=== PATIENT | female | born 1975 | race Caucasian/White ===

== ENCOUNTER 2019-01-19 14:47 | Emergency (ER) | payer OTHER, BC ==
--- OUTSIDE RECORDS SUMMARY | 2019-01-19 14:53 | XMS REPORT | Summary of Care ---
:1975 Author Organization [facility] Address [address] [facility] [place] [address] Care Team Providers Name Role Phone None, [place] Primary Care Provider Unavailable Reason for Visit Reason Comments Cat Bite on right middle finger Cat Scratch left hand Encounter Details Date Type Department Care Team Description 01/19/2019 Office Visit [facility] Karin Silveira, Cat bite of finger, initial encounter (Primary Dx); Practice [employer] , unspecified gestational age [address] [place] [address] [place] [address] [phone] Allergies No Known Allergiesdocumented as of this encounter (statuses as of 01/19/2019) Medications Medication Sig Dispensed Refills Start Date End Date Status Vit-Fe Take 1 Tab by 0 Active Fumarate-FA ( mouth DAILY. VITAMIN PO) Folic Acid 0.8 MG Oral Take 1 Cap by 0 Active Cap mouth DAILY. cephalexin (KEFLEX) 500 Take 1 Cap by 28 Cap 0 01/19/2019 Active MG Oral Cap mouth FOUR TIMES DAILY. documented as of this encounter (statuses as of 01/19/2019) Active Problems Problem Noted Date Rubella non-immune status, antepartum 09/17/2017 Estimated Date of Delivery Comments Yes 06/01/2019 documented as of this encounter (statuses as of 01/19/2019) Immunizations Name Administration Dates Next Due TDAP Vaccine 01/19/2019 documented as of this encounter Social History Tobacco Use Types Packs/Day Years Used Date Never Smoker Smokeless Tobacco: Never Used Alcohol Use Drinks/Week oz/Week Comments Yes 3 Standard drinks or equivalent 3.0 occasional; none since knowledge of Estimated Date of Delivery Comments Yes 06/01/2019 Sex Assigned at Date Recorded Not on file Job Start Date Occupation Industry Not on file Not on file Not on file Travel History Travel Start Travel End No recent travel history available. documented as of this encounter Last Filed Vital Signs Vital Sign Reading Time Taken Comments Blood Pressure 102/54 01/19/2019 2:12 PM EST Pulse 71 01/19/2019 2:12 PM EST Temperature 36.8 01/19/2019 2:12 PM EST C (98.2 F) Respiratory Rate - - Oxygen Saturation 99% 01/19/2019 2:12 PM EST Inhaled Oxygen Concentration - - Weight 53.5 kg (118 lb) 01/19/2019 2:12 PM EST Height - - Body Mass Index 23.05 06/25/2018 11:18 AM EDT documented in this encounter Patient Instructions Patient InstructionsKarin Asif FNP - 01/19/2019 2:00 PM ESTAdacel today Start antibiotic [facility] per Zenaida at [facility] documented in this encounter Progress Notes Karin Asif FNP - 01/19/2019 2:00 PM EST PATIENT: Mi Aguilar : 1975 DATE OF SERVICE: 01/19/2019 CHIEF COMPLAINT: Chief Complaint Patient presents with Cat Bite on right middle finger Cat Scratch left hand Subjective HISTORY OF PRESENT ILLNESS: Mi Aguilar is a 43-y.o. female. HPI Pt bitten on right 3rd finger and scratched on left hand by stray cat that was in wheel well of her car at [facility] parking lot earlier today.Pt is 6 months . Past Medical History: Diagnosis Date Abnormal Pap smear of cervix at age 22; wnl since Depression Infertility, female 06/2017 @[facility] Family History Problem Relation Age of Onset Dementia Mother Other Diagnosed Disorder Father lymphoma Hypertension Maternal Grandmother Other Diagnosed Disorder Maternal Grandmother recurrent miscarriages, stillbirth Diabetes Paternal Grandmother Type II Current Outpatient Medications Medication Sig cephalexin (KEFLEX) 500 MG Oral Cap Take 1 Cap by mouth FOUR TIMES DAILY. Folic Acid 0.8 MG Oral Cap Take 1 Cap by mouth DAILY. Vit-Fe Fumarate-FA ( VITAMIN PO) Take 1 Tab by mouth DAILY. No current facility-administered medications for this visit. No Known Allergies Social History Socioeconomic History Marital status: Spouse name: Not on file Number of children: Not on file Years of education: Not on file Highest education level: Not on file Occupational History Not on file Social Needs Financial resource strain: Not on file Food insecurity: Worry: Not on file Inability: Not on file Transportation needs: Medical: Not on file Non-medical: Not on file Tobacco Use Smoking status: Never Smoker Smokeless tobacco: Never Used Substance and Sexual Activity Alcohol use: Yes Alcohol/week: 3.0 standard drinks Types: 3 Standard drinks or equivalent per week Comment: occasional; none since knowledge of Drug use: No Sexual activity: Yes Partners: Male Lifestyle Physical activity: Days per week: Not on file Minutes per session: Not on file Stress: Not on file Relationships Social connections: Talks on phone: Not on file Gets together: Not on file Attends restorationist service: Not on file Active member of club or organization: Not on file Attends meetings of clubs or organizations: Not on file Relationship status: Not on file Intimate partner violence: Fear of current or ex partner: Not on file Emotionally abused: Not on file Physically abused: Not on file Forced sexual activity: Not on file Other Topics Concern Not on file Social History Narrative Not on file Over the last 2 weeks, have you been feeling down, depressed, anxious, or hopeless?: 0 Over the past 2 weeks, have you felt little interest or pleasure in doing things ?: 0 REVIEW OF SYSTEMS: Review of Systems Musculoskeletal: Positive for myalgias. Objective PHYSICAL EXAM: VITALS: BP 102/54 | Pulse 71 | Temp 98.2 F (36.8 C) (Tympanic) | Wt 118 lb (53.5 kg) | LMP 03/02/2018 (Exact Date) | SpO2 99% | BMI 23.05 kg/m Body mass index is 23.05 kg/m. Physical Exam Vitals signs reviewed. Constitutional: Appearance: Normal appearance. Comments: Musculoskeletal: Hands: Skin: General: Skin is warm and dry. Capillary Refill: Capillary refill takes less than 2 seconds. Neurological: Mental Status: She is alert and oriented to person, place, and time. ASSESSMENT / IMPRESSION: ICD-9-CM ICD-10-CM 1. Cat bite of finger, initial encounter 883.0 S61.259A E906.3 W55.01XA 2. , unspecified gestational age V22.2 Z34.90 Plan Discussed with Zenaida at [facility] Environmental Health - cat needs to be observed for 10 days - since stray in parking lot likelihood of capture is slim - advised to send pt to [facility] for treatment to prevent rabies - pt agrees. Tdap and Keflex ordered today Author: ESTELLA Decker 01/19/2019 14:49 documented in this encounter Plan of Treatment Health Maintenance Due Date Last Done Comments LIPID DISORDER SCREENING 08/19/1993 PAP SMEAR 08/19/1996 MAMMOGRAM (SCREENING) 2015 INFLUENZA VACCINE (#1) 2018 DEPRESSION SCREENING 01/20/2020 01/19/2019 HIV SCREENING Completed 09/03/2017, 10/14/2016 HPV IMMUNIZATION SERIES Aged Out No longer eligible based on patient's age to complete this topic MENINGOCOCCAL VACCINE IMM Aged Out No longer eligible based on patient's age to complete this topic PNEUMOCOCCAL 0-64 YRS Aged Out No longer eligible based on patient's age to complete this topic documented as of this encounter Results Not on filedocumented in this encounter Visit Diagnoses Diagnosis Cat bite of finger, initial encounter - Primary , unspecified gestational age documented in this encounter documented as of this encounter"
== END 2019-01-19 15:20 | disposition left against medical advice (07) ==
LOC: UCEAST 14:47
DX: Z53.21 Procedure and treatment not carried out due to patient leaving prior to being seen by health care provider (principal)

== ENCOUNTER 2019-01-22 07:22 | Emergency (ER) | payer BC, OTHER ==
[2019-01-22 07:34] VITALS: BP 100/54
[2019-01-22] MEDS ORDERED: Rabies VIRUS VACCINE (RabAvert)* 2.5 UNITS VIAL IM ONE (07:50)
--- NOTE | 2019-01-22 08:47 | UC ---
General HPI - HPI Summary HPI Summary: Patient presents to urgent care requesting #2 of her series of rabies vaccine. Patient was bit by a feral cat last week. Patient states she was in contact with both [facility] as well as [facility] this is happening [facility]. Patient was treated in the emergency department [facility] where she received immunoglobulin, tetanus , and rabies #1 vaccine. Patient is here for rabies #2 vaccine. Patient has appointment scheduled for #3 and #4 to the [facility]. Patient without any complaints or pain reaction related to previous injections Pt is 5 months . Pt's medications as entered in the EMR by triage nurse reviewed this visit - History of Current Complaint Chief Complaint: UCBiteInjury Stated Complaint: POST RABIES EXPOSURE Time Seen by Provider: 01/22/19 07:34 Hx Obtained From: Patient Pain Intensity: 0 - Allergy/Home Medications Allergies/Adverse Reactions: Allergies Allergy/AdvReac Type Severity Reaction Status Date / Time No Known Allergies Allergy Verified 01/22/19 07:33 Home Medications: Home Medications NK [No Home Medications Reported] 01/22/19 [History Confirmed 01/22/19] PMH/Surg Hx/FS Hx/Imm Hx Previously Healthy: Yes - Surgical History Surgical History: Yes Surgery Procedure, Year, and Place: wisdom teeth - Family History Known Family History: Positive: Non-Contributory - Social History Occupation: Employed Full-time Lives: With Family Alcohol Use: None Substance Use Type: None Smoking Status (MU): Never Smoked Tobacco Review of Systems All Other Systems Reviewed And Are Negative: Yes Is Patient Immunocompromised?: No Physical Exam - Summary Physical Exam Summary: Vital Signs Reviewed: Yes A+Ox3, no distress Eyes: Conjunctiva Clear ENT: Hearing grossly normal neck: supple Respiratory: Positive: No respiratory distress, No accessory muscle use Cardiovascular: skin color reflect adequate perfusion Musculoskeletal Exam: LINARES x 4 without difficulty Neurological: Positive: Alert, ambulatory without difficulty Psychological: Positive: Normal Response To proivder Skin: Positive: no rash, no ecchymosis - bite wounds c/d/i previous injection site c/d/i Triage Information Reviewed: Yes Vital Signs: Initial Vital Signs Temp 99.1 F 01/22/19 07:30 Pulse 72 01/22/19 07:30 Resp 18 01/22/19 07:30 BP 100/54 01/22/19 07:30 Pulse Ox 100 01/22/19 07:30 Course/Dx - Course Course Of Treatment: Pt presents to for #2 rabies vaccine. Pt without previous reaction to vaccine Pt has additional appointment schedule for remainder or series return precautions discussed pt comfortable and agreement Per Uptodate: Animal reproduction studies have not been conducted. is not a contraindication to postexposure prophylaxis. Pre-exposure prophylaxis during may also be considered if risk of rabies is great. Inactivated vaccines have not been shown to cause increased risks to the fetus (ACIP [ Madeleine 2017]). - Diagnoses Provider Diagnosis: Rabies, need for prophylactic vaccination against Discharge ED - Sign-Out/Discharge Documenting (check all that apply): Patient Departure All imaging exams completed and their final reports reviewed: No Studies - Discharge Plan Condition: Stable Disposition: HOME Patient Education Materials: Rabies Vaccine (ED) Referrals: [facility] [employer], [[email or web address], APPLICATION, OTHER] - Additional Instructions: Keep your appointments as scheduled for the remainder of your vaccination series You may experience discomfort at the site of the injection - this is normal. Okay to take tylenol as needed for discomfort Contact the health department, return here or go to the emergency department with questions or concerns - Billing Disposition and Condition Condition: STABLE Disposition: Home
== END 2019-01-22 08:17 | disposition home or self-care (01) ==
LOC: UCEAST 07:22
DX: Z23 Encounter for immunization (principal); O9A.212 Injury, poisoning and certain other consequences of external causes complicating pregnancy, second trimester; T14.8XXD Other injury of unspecified body region, subsequent encounter; W55.01XD Bitten by cat, subsequent encounter
CPT/HCPCS: 90471; 90675; 99211; G0463

== ENCOUNTER 2019-05-26 01:02 | Inpatient (IN) | payer BC ==
[2019-05-26] MEDS ORDERED: Buffered Lidocaine 1% SYRIN* 1 ML/SYRINGE INTRADERM ONE (02:22)
[2019-05-26] MEDS ORDERED: Lactated Ringers 1000 ML Bag* 1,000 ML IV ONE ×2 (02:22→09:10)
[2019-05-26] MEDS ORDERED: hydrOXYzine HCL TAB* 25 MG PO PRN (02:30)
[2019-05-26 05:10] LABS: Urine Benzodiazepine Screen None Detected (None Detect); Urine Opiates Screen None Detected (None Detect)
[2019-05-26] MEDS ORDERED: Morphine 10 MG/ML VIAL (1 ml) IV ONE (07:04)
[2019-05-26] MEDS ORDERED: Penicillin G Potassium IV* 5,000,000 UNITS in NS 0.9% 100 ML* 100 ML IVPB ONE (07:07)
[2019-05-26] MEDS ORDERED: Promethazine INJ(RESTRICTED)* 25 MG/ML 1 ML VIAL IV PRN (07:07)
--- NOTE | 2019-05-26 07:25 | HP ---
General Information - Reason for Visit Patient reports large gush of clear fluid around 0 last night. Cramping and mild ctx since then. - General Information Maternal Age: 43 Grav: 2 Para: 0 SAB: 1 IEA: 0 Estimated Due Date: 06/01/19 Maternal Blood Type and Rh: A Positive - Results this Serology/RPR Result: Non-Reactive Rubella Result: Immune HBsAg Result: Negative HIV Result: Negative GBS Culture Result: Positive Past Medical History Delivery History: See Records - No previous deliveries Pertinent Past Medical History: See Records - Depression Pertinent Past Surgical History: See Records Past Surgical History Comment: D&C 09/2017 [place] teeth removal Pertinent Family History: Non-Contributory Family History Comment: Lymphoma Kidney dz Lewy body dz - Antepartal Records Antepartal Records: Reviewed, Complicated by: - AMA age 43; GBS positive; HSV Review of Systems Constitutional: Uncomfortable CV Complaint: No Gastrointestinal: Normal Bowel Movement, Nausea, Vomiting Genitourinary: No Dysuria, No Bleeding, No Leaking Fluid Musculoskeletal: Contractions Neurological: No Headache, No Visual Changes Movement: Normal Exam Allergies/Adverse Reactions: Allergies No Known Allergies Allergy (Verified 05/26/19 02:09) BP 123/77 HR 66 T 99.0 O2 100 Lab Values - Entire Visit: Laboratory Tests 05/26/19 03:45 Urine Opiates Screen None detected Ur Barbiturates Screen None detected Ur Phencyclidine Scrn None detected Ur Amphetamines Screen None detected U Benzodiazepines Scrn None detected Urine Cocaine Screen None detected U Cannabinoids Screen None detected - Measurements Height: 5 ft Weight: 129 lb Weight in lbs: 129.575423 Body Mass Index (BMI): 25.2 Pre- Weight: 105 lb Weight Gained This : 24 lbs and 0 ozs - Exam Breast: Breast Exam Deferred CVA: No CVA Tenderness Extremities: No Edema Heart: Normal Rhythm/Heart Sounds HEENT: No Significant Findings Lungs: Clear Bilaterally Rectal: Rectal Exam Deferred Thyroid: - - Abdominal Exam Abdomen Exam: Non-Tender, Fundal Height Consistent with Dates - Ultrasound/Biophysical Profile Ultrasound Status: Not Done Targeted Exam Findings Estimated Weight: 7.5lb Cervical Exam: Fingertip Effacement: 100% Station: 0 Presenting Part: Vertex Membrane Status: SROM Amniotic Fluid Evaluation: Gross Rupture, Clear Bleeding/Discharge: None EFM Findings - External Monitor Findings Baseline Heart Rate: 130 External Monitor Findings: Accelerations Present, No Pattern of Variable or Late Decelerations, Variability Moderate Contractions: Irregular, Moderate, < 45 Seconds Contraction Frequency: Q 2-5 min, irritability Assessment/Plan - Assessment IUP @ 39+1 weeks gestation in early labor. Spontaneous rupture of membranes. No evidence acidemia. - Obstetrical Risk Factors Obstetrical Risk Factors: GBS Positive - Plan Plan: Admit - Anticipate Vaginal Delivery Plan Comment: PARQ discussion use of therapeutic rest medications; patient in agreement. Will also give fluid bolus with IV initiation as patient has been vomiting and oral intake limited. Patient may desire epidural. Will start GBS prophylaxis. - Date/Time of Admission Date of Admission: 05/26/19 Time of Admission: 02:26
[2019-05-26 07:45] LABS: ABS Basophils 0.1 10^3/ul (0-0.2); ABS Lymphocytes 1.4 10^3/ul (1.0-4.8); ABS Monocytes 0.3 10^3/ul (0-0.8); ABS Neutrophils 12.8 10^3/ul (1.5-7.7); Eosinophil % 0.1 %; Hematocrit 40 % (35-47); Hemoglobin 13.9 g/dL (12.0-16.0); Lymphocyte % 9.5 %; Mean Corpuscular HGB Conc 35 g/dL (31-36); Mean Corpuscular Hemoglobin 32 pg (27-31); Mean Corpuscular Volume 92 fL (80-97); Mean Platelet Volume 9.7 fL (7.4-10.4); Platelet Count 232 10^3/uL (150-450); Red Blood Count 4.27 10^6 /uL (3.70-4.87); Red Cell Distribution Width 14 % (10-15); White Blood Count 14.5 10^3/uL (3.5-10.8)
[2019-05-26] MEDS: Lactated Ringers 1000 ML Bag* 1,000 ML IV SCH ×3 (08:19→14:29)
[2019-05-26] MEDS ORDERED: OBEPIDURAL* 250 ML EPIDURAL ONE (08:27)
--- NOTE | 2019-05-26 08:31 | PN ---
Progress Note - Progress Note Date of Service: 05/26/19 Note: Quick note: Mi sidelying in bed, resting between UCs and vocalizing during. She requests an epidural. Discussed options and alternatives including deep abdominal breathing and tub. Mi opts to proceed with epidural, Dr. Navarro paged and on the way. Will reassess once comfortable
[2019-05-26] MEDS ORDERED: Bupivacaine 0.25% SDV PF* 10 ML VIAL INJ ONE (08:34)
[2019-05-26] MEDS ORDERED: EPHEDrine (Pressors)* 50 MG/ML VIAL IV PUSH PRN (09:10)
[2019-05-26] MEDS ORDERED: Phenylephrine 40 MCG/ML SYRINGE IV PUSH PRN (09:10)
[2019-05-26] MEDS ORDERED: Famotidine TAB* 20 MG PO PRN (09:10)
[2019-05-26] MEDS ORDERED: Sodium Citrate/Citric Acid* 15 ML UDC PO PRN (09:10)
[2019-05-26] MEDS ORDERED: Lactated Ringers 1000 ML Bag* 1,000 ML IV SCH (10:00)
[2019-05-26] MEDS: Penicillin G Potassium IV* 3,000,000 UNITS in NS 0.9% 100 ML* 100 ML IVPB SCH ×3 (11:55→19:52)
--- NOTE | 2019-05-26 12:18 | PN ---
Progress Note - Progress Note Date of Service: 05/26/19 Note: S: Feeling comfortable s/p CEI placement. Unable to feel UCs. Less drowsy now that morphine/phenergan from this am has worn off O: B/P 113/73, P: 93, R: 20, T: 99.6 FHR: baseline 135, moderate variability, +accels, occasional early decels UCs: q 6-8 min, moderate to palpation. Regular VE deferred. SROM x 15 hrs A: IUP at 39 1/7 weeks Category I FHR, no evidence of metabolic acidemia GBS positive, tx w/ IV PCN x 2 doses P: Reassess once bloody show, feelings of increased pressure, change in FHR, or if UCs space out Continue position changes to promote descent continue GBS prophylaxis per protocol Anticipate SVB
--- NOTE | 2019-05-26 13:07 | PN ---
Progress Note - Progress Note Date of Service: 05/26/19 Note: B/P: 102/59, P: 69, T: 99.1 FHR: baseline 145, moderate variability, +accelerations, occ early deceleration UCs: q 6-9 min, moderate VE: 1/100/-1, clear fluid A: IUP at 39 1/7 weeks No evidence of metabolic acidemia early labor SROM x 15.5 hr P: Continue GBS prophylaxis per protocol Discussed augmentation with IV pitocin; Mi weeks at this time Temperatures q2 hrs reassess PRN Anticipate SVB
--- NOTE | 2019-05-26 16:34 | PN ---
Progress Note - Progress Note Date of Service: 05/26/19 Note: S: Left leg less numb than right leg but still feeling UCs O: B/P 107/68, P: 62, R: 20, T: 99.9 FHR: baseline 150, moderate variability, +accelerations, no decelerations UCs: 8-10 min, moderate VE: 1/100/0, clear fluid A: IUP at 39 1/7 weeks Category I FHR, no evidence of metabolic acidemia Early labor SROM x 19 hr P: Revisited augmentation with IV pitocin, Mi again declines at this time. Re-assess in 2-4 hrs Continue GBS prophylaxis per protocol and q2hr temps Anticipate SVB
--- NOTE | 2019-05-26 19:36 | PN ---
Progress Note - Progress Note Date of Service: 05/26/19 Note: S: Feeling UCs slightly more, but not painful. Declines need to push her button at this time O: B/P: 122/65, P: 56, R: 20, T: 99.8 FHR: baseline 150, moderate variability, + accelerations, no decelerations UCs: q 5-7 min, moderate VE: 1/100/0, clear fluid. Bloody show noted A: IUP at 39 1/7 weeks Category I FHR, no evidence of metabolic acidemia SROM x 22 hrs VE unchanged x 7 hrs GBS positive, treated x 3 doses P: PARQ discussion re: augmentations with low dose pitocin. Tyree agree at this time Reassess PRN Anticipate SVB
[2019-05-26] MEDS ORDERED: Oxytocin in LR* 20 UNITS/1,000 ML BAG IVPB SCH (20:00)
[2019-05-26] MEDS ORDERED: Acetaminophen TAB* 325 MG PO ONE (20:28)
[2019-05-26] MEDS ORDERED: Acetaminophen TAB* 325 MG ONE (20:29)
[2019-05-26 21:01] LABS: ABS Lymphocytes 1.7 10^3/ul (1.0-4.8); ABS Monocytes 0.9 10^3/ul (0-0.8); ABS Neutrophils 11.7 10^3/ul (1.5-7.7); Eosinophil % 0.1 %; Hematocrit 34 % (35-47); Hemoglobin 11.8 g/dL (12.0-16.0); Lymphocyte % 11.6 %; Mean Corpuscular HGB Conc 34 g/dL (31-36); Mean Corpuscular Hemoglobin 32 pg (27-31); Mean Corpuscular Volume 93 fL (80-97); Mean Platelet Volume 9.4 fL (7.4-10.4); Platelet Count 179 10^3/uL (150-450); Red Blood Count 3.67 10^6 /uL (3.70-4.87); Red Cell Distribution Width 14 % (10-15); White Blood Count 14.3 10^3/uL (3.5-10.8)
--- NOTE | 2019-05-26 21:34 | PN ---
Progress Note - Progress Note Date of Service: 05/26/19 Note: S: Has pushed epidural button, but reports she is not in pain. More aware of UCs and nervous it could become more intense O: B/P: 126/78, P: 67, R: 20, T: 100.6, increased from 100.4 at 2020. 975 mg Tylenol given PO White blood count 14.3, decreased from 14.5 this morning FHR: baseline 150, moderate variability, +accelerations, occasional late decelerations. UCs: q 3-8 min, moderate to palpation VE deferred Pitocin at 6 mu/min A: IUP at 39 1/7 weeks Category II FHR, doubt metabolic acidemia at this time P: Fluid bolus and position changes to promote oxygenation Re-take temperature at 2145; Consider IV ampicillin and gentamycin if still elevated Reassess 1-2 hrs or sooner as indicated Anticipate SVB
[2019-05-27] MEDS: Penicillin G Potassium IV* 3,000,000 UNITS in NS 0.9% 100 ML* 100 ML IVPB SCH (00:02)
--- NOTE | 2019-05-27 00:09 | PN ---
Progress Note - Progress Note Date of Service: 05/26/19 Note: S: Called to pt room because her partner Bronwyn had concerns about FHR. Upon arriving at room, Bronwyn stated "I've been watching the heart rate for 18 hours and its gotten higher." I explained that baby's baseline was 155, which is normal, but that baby has had a couple of prolonged accelerations. He then voiced frustration that I look at Mi instead of him when I am explaining things and it makes him feel disrespected. He stated he would like a straightforward plan regarding "how long we're going to let this go on" since she has now been SROM >24 hr. I informed him the rationale for recommending pitocin had been the lack of cervical change from when I checked [place] cervix at 1300 to when I checked again at 1915. We discussed the FHR and that it overall has been normal today, with moderate variability and increases above baseline without significant decreases, which is a reassuring sign of well -being. I did mention her elevated temperature as a concern, especially in presence of prolonged rupture of membranes, but that her temperature was currently below 100 (99.8), her WBC count unchanged from this morning, and no increase has been noted in maternal or baseline heart rate. I then was called by the answering service and briefly excused myself from the room to answer the call. Upon returning to the room, Bronwyn stated that he has been "asking questions in the simplest of terms" and expressed feeling distress that he has not gotten clear answers on "the expected progression and timeline" of [place] labor. He stated I was just "looking for an excuse to run out of the room" and I should not have left the room to answer the call from the answering service. I apologized for his upset and attempted to explain that labor does not always follow a predictable pattern and he interrupted me to tell me that people entrust him with tens of millions of dollars to invest in the stock market and that isn't predictable either but he at least has a plan for what to do. I reviewed with him that we did make a plan when we started pitocin shortly after 1900 to reassess for cervical change in 3-4 hours, and that we were now within that window. He stated the nurse told him it would be midnight when I checked Mi. I told him the best way to assess labor progress is an adequate contraction pattern in presence of cervical change, but that we do not want to assess too frequently in presence of prolonged rupture of membranes as this can increase the risk of infection. I told him that the plan, at this point, was for a vaginal pending cervical change. I offered Mi a cervical exam and she agreed. O: B/P 113/65, P: 64, T: 98.9 FHR: baseline 150, moderate variability, +accelerations, occ variable decelerations UCs: q3-4 min, moderate VE: 7/100/0, bloody show Pitocin at 10 mu/min A: IUP at 39 1/7 weeks Category II FHR, doubt metabolic acidemia. No pattern of repetitive late or variable decelerations and moderate variability Active labor/transition GBS positive P: Continue pitocin per protocol. Discussed if temperature returns to greater than or equal to 100.4, I will recommend IV antibiotics for chorio as well as swab for COVID-19. We discussed the plan for her labor moving forward, which is to reassess by no later than 2 am. We would consider a cervical exam sooner in presence of distress, increased pressure or urge to push, or patient desire. Will consult with Aman Kemp re: treatment for suspected chorio vs COVID-19 Anticipate SVB
--- NOTE | 2019-05-27 00:18 | PN ---
Progress Note - Progress Note Date of Service: 05/27/19 Note: Quick note: temperature persisting above 100 and baseline increasing, recommend IV ampicillin/gentamicin. Bronwyn and Mi agree to plan. Will update Aman Kemp MD
[2019-05-27] MEDS: Ampicillin ADVAN(*) 2 GM in NS 0.9% 100 ML* 100 ML IVPB SCH ×2 (00:45→07:44)
[2019-05-27] MEDS ORDERED: GENTAMICIN ADULT IVPB SCH (01:00)
[2019-05-27] MEDS ORDERED: NS 0.9% IVPB SCH (01:00)
[2019-05-27] MEDS ORDERED: Dibucaine 1% 28.35 GM TUBE PR PRN (06:53)
[2019-05-27] MEDS ORDERED: Tetan/Diph/Pertus SYR(Tdap)* 0.5 ML SYR(BOOSTRIX) use SYR contains LATEX IM ONE (06:53)
[2019-05-27] MEDS ORDERED: Glycerin ADULT SUPP PR PRN (06:53)
[2019-05-27] MEDS ORDERED: Witch Hazel PAD* JAR TOPICAL PRN (06:53)
--- NOTE | 2019-05-27 06:57 | PROCNOTE ---
[facility] OB: Delivery Note - Delivery A Time of : 06:40 [place] Sex: Female Score 1 Minute: 8 Score 5 Minutes: 9 Gestational Age in Weeks and Days at Delivery: Missing required information. Delivery Method: Spontaneous Vaginal Labor: Induced Did Patient attempt ?: N/A, No Previous Amniotic Fluid: Clear Estimated Blood Loss: 200 Anesthesia/Analgesia: CEI for Labor - Nursery Level of Nursery: Regular/Bedside - Perineum Perineal Injury: None/Intact, 1st Degree Perineal Repair: None - Events Delivery Events of Note: None Apply
[2019-05-27] MEDS ORDERED: Lactated Ringers 1000 ML Bag* 1,000 ML IV SCH (07:00)
[2019-05-27] MEDS: OBEPIDURAL* 250 ML EPIDURAL SCH ×2 (07:43→12:15)
[2019-05-27] MEDS ORDERED: Simethicone TAB* 80 MG TAB.CHEW PO SCH (08:30)
[2019-05-27] MEDS: Ibuprofen TAB* 600 MG PO PRN ×3 (10:28→22:38)
[2019-05-27] MEDS: Docusate CAP* 100 MG PO SCH ×3 (12:22→21:16)
[2019-05-27] MEDS: Acetaminophen TAB* 325 MG PO PRN ×2 (14:53→21:16)
--- NOTE | 2019-05-27 15:04 | PTEDU ---
Patient Name: CAPO JALLOH CAPO JALLOH selected video: Follow Me Mum: [employer] [place] [facility] Successful to view on 05/26 at 3:04:31 PM from [id number]
[2019-05-27] MEDS ORDERED: Lidocaine 1% INJ* 10 MG/ML 30 ML SDV ONE (19:00)
--- NOTE | 2019-05-27 23:53 | PN ---
Progress Note - Progress Note Date of Service: 05/27/19 Note: Called by RN. Pt reports sharp pelvic pain. She reports difficulty walking. Denies LE weakness, hip/back pain, urinary/fecal incontinence. On exam, pain elicited with flexion of knees; with bilateral pressure on trochanters. 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 Plan for PT assessment and pelvic radiograph tomorrow. Pt to try pelvic girdle and ibuprofen/Tylenol for pain. -AM
[2019-05-27] MEDS ORDERED: oxyCODONE TAB* 5 MG TAB PO PRN (23:55)
[2019-05-28] MEDS: Ibuprofen TAB* 600 MG PO PRN ×3 (04:27→17:12)
[2019-05-28 06:47] LABS: ABS Eosinophils 0.3 10^3/ul (0-0.6); ABS Lymphocytes 1.9 10^3/ul (1.0-4.8); ABS Monocytes 0.6 10^3/ul (0-0.8); ABS Neutrophils 10.9 10^3/ul (1.5-7.7); Eosinophil % 1.8 %; Hematocrit 34 % (35-47); Hemoglobin 11.8 g/dL (12.0-16.0); Lymphocyte % 13.6 %; Mean Corpuscular HGB Conc 35 g/dL (31-36); Mean Corpuscular Hemoglobin 33 pg (27-31); Mean Corpuscular Volume 94 fL (80-97); Mean Platelet Volume 9.3 fL (7.4-10.4); Platelet Count 171 10^3/uL (150-450); Red Blood Count 3.61 10^6 /uL (3.70-4.87); Red Cell Distribution Width 14 % (10-15); White Blood Count 13.7 10^3/uL (3.5-10.8)
[2019-05-28] MEDS: Docusate CAP* 100 MG PO SCH ×3 (08:07→21:14)
[2019-05-28] MEDS: Acetaminophen TAB* 325 MG PO PRN ×3 (08:07→21:15)
[2019-05-28] MEDS ORDERED: Ferrous Gluconate TAB* 324 MG TAB PO SCH (09:00)
[2019-05-29] MEDS: Ibuprofen TAB* 600 MG PO PRN ×3 (00:29→12:37)
[2019-05-29] MEDS: Acetaminophen TAB* 325 MG PO PRN (08:15)
[2019-05-29] MEDS: Docusate CAP* 100 MG PO SCH (08:16)
[2019-05-29 09:42] VITALS: BP 112/65
== END 2019-05-29 14:58 | disposition home or self-care (01) | DRG 560 ==
LOC: MCHOBOUT 01:02 → MCHOB 02:26
PROVIDERS: ADMIT Midwife; ATTEND Midwife
PROC: 10E0XZZ Delivery of Products of Conception, External Approach (ICD-10-PCS; principal; 2019-05-27)
PROC: 3E033VJ Introduction of Other Hormone into Peripheral Vein, Percutaneous Approach (ICD-10-PCS; 2019-05-27)
PROC: 10907ZC Drainage of Amniotic Fluid, Therapeutic from Products of Conception, Via Natural or Artificial Opening (ICD-10-PCS; 2019-05-27)
DX: O99.824 Streptococcus B carrier state complicating childbirth (principal); O75.2 Pyrexia during labor, not elsewhere classified; Z37.0 Single live birth; O76 Abnormality in fetal heart rate and rhythm complicating labor and delivery; O70.0 First degree perineal laceration during delivery; Z3A.39 39 weeks gestation of pregnancy
CPT/HCPCS: 36415; 72190; 80307; 85025; 86850; 86900; 86901; 88307; 90715; A9270-GY; G0480; J1580; J2270; J2540; J2550; J3490